=== PATIENT | female | born 1960 | race Caucasian/White ===

== ENCOUNTER → 2016-11-30 | Outpatient (CLI) | payer BC ==
[~2016-11-30] MED LIST: CA C1TAB26 PO; CETI10TA17 PO; CLON0.5T3 PO; CYCL10TA9 PO; FLUO40CA PO; FLUT16SP22 NSEACH; GLUC-115 PO; KRIL1CAP PO; LEVO75TA6 PO; LIRA0.6P SQ; LIRA3PEN SQ; MELO-195 PO; MULT-166 PO; NALT1TAB PO; NF-ESOM40C PO; ONDA-42 SL; ONDA-43 PO; OXYC-475 PO; SPIR100T28 PO; TOPI50TA2 PO; TRM50T PO; ZLP5T PO
--- NOTE | 2016-11-30 14:20 | Diagnostic Imaging Report ---
CLINICAL INDICATION: Patient with cough and shortness of breath for the past week. EXAM: Chest x-ray PA and lateral views. COMPARISONS: Chest x-ray dated 11/24/2010. FINDINGS: Lungs/pleura: Lungs are clear. There is no pneumothorax. There is no pleural effusion. Mediastinum: Unremarkable. Pulmonary vasculature: Unremarkable. Heart: Unremarkable. Bones/extrathoracic soft tissue: There are moderately hypertrophic degenerative osteophytes scattered throughout the thoracic spine. IMPRESSION: There is no radiographic evidence of acute cardiopulmonary process. Dictated by: Dictated on workstation # [id number]
== END ==
LOC: RAD 13:53
PROVIDERS: ATTEND Family Medicine
DX: R05 Cough (principal); R06.00 Dyspnea, unspecified
CPT/HCPCS: 71020